=== PATIENT | female | born 1980 ===

== ENCOUNTER 2020-09-22 09:00 | Emergency (ER) | payer OTHER ==
[~2020-09-22] VITALS: Ht 154.9 cm; Wt 60.8 kg
[~2020-09-22 09:00] MED LIST: SYNTHROID50 MCG; SYNTHROID75 MCG; TUSSI PRES-B L120 M1 PO; ZITHROMAX TRI-500 MG PO
[2020-09-22] MEDS ORDERED: KETO10TA2 PO (14:45)
== END 2020-09-22 14:50 | disposition home or self-care (01) ==
LOC: ER 09:00
DX: S90.32XA Contusion of left foot, initial encounter (principal); W18.09XA Striking against other object with subsequent fall, initial encounter; Y93.89 Activity, other specified; Y92.89 Other specified places as the place of occurrence of the external cause; Y99.8 Other external cause status